=== PATIENT | female | born 1955 | race Caucasian/White ===

== ENCOUNTER 2022-12-16 11:11 | Outpatient (CLI) | payer OTHER, SELFPAY ==
--- NOTE | ~2022-12-16 | XR_ITS ---
Supine and upright views of the abdomen Clinical history: Diarrhea Findings: Bowel gas pattern is nonspecific. No evidence for obstruction or free air. No abnormal mass lesion or calcification is seen. Cholecystectomy clips are present. Degenerative spondylosis of the lumbar spine noted. Impression: Nonspecific bowel gas pattern. Reviewed, dictated and finalized at [facility]. Impression: Nonspecific bowel gas pattern.
== END 2022-12-16 11:12 | disposition home or self-care (01) ==
PROVIDERS: PCP Family Medicine; Visit Provider Nurse Practitioner Family
DX: R19.7 Diarrhea, unspecified (principal)
CPT/HCPCS: 74018

== ENCOUNTER 2023-01-20 08:45 | Outpatient (CLI) | payer OTHER, SELFPAY ==
--- NOTE | ~2023-01-20 | CT_ITS ---
. EXAMINATION: CT abdomen pelvis w con DATE: 01/20/2023 09:10 INDICATION: Unspecified abdominal pain TECHNIQUE: Computed tomography (CT) of the abdomen and pelvis was performed with 100 cc Omnipaque 350 intravenous contrast. The dose-length product was 485.36 mGy-cm. Automated exposure control and iter ative reconstruction technique were employed. COMPARISON: None. FINDINGS: Lung bases are unremarkable. Heart size is normal. No significant pleural or pericardial ef fusion. Status post cholecystectomy. There are liver cysts. Fatty infiltration of the liver. The sple en, pancreas, adrenal glands and left kidney are unremarkable. There is a 2 mm nonobstructing right r enal stone. Nonobstructive bowel pattern. Small fat containing umbilical hernia. Nonobstructive bowel pattern. No free air or free fluid. Mild lumbar spondylosis. IMPRESSION: 1. Nonobstructing right nephrolithiasis. Reviewed, dictated and finalized at [facility].
[2023-01-20 09:03] LABS: Estimated Glomerular Filt Rate 55
== END 2023-01-20 08:46 | disposition home or self-care (01) ==
PROVIDERS: PCP Family Medicine; Visit Provider Nurse Practitioner Family
DX: N20.0 Calculus of kidney (principal)
CPT/HCPCS: 74177; Q9967

== ENCOUNTER 2023-07-28 00:32 | Day surgery (SDC) | payer OTHER, SELFPAY ==
[2023-07-11 09:18] VITALS: BMI 28.3
--- NOTE | 2023-07-26 08:23 | SUR.PREOP ---
Patient called regarding upcoming procedure. Voicemail left regarding appointment times.
--- NOTE | 2023-07-27 14:30 | PM.HPGS ---
History of Present Illness History of Present Illness Consent: Risks, benefits, and alternatives have been discussed and questions answered. Patient agrees to proceed with procedure. Chief complaint: Change in bowel habit,IBS,Neoplasm screening, Narrative: Michelle Medina is a 68 year old female With a change in bowel habits. For the past year so she has had alternating constipation and diarrhea. She in fact had been using Linzess as well as at times using Imodium depending on her stool consistency. Fecal calprotectin level was normal. She also has a family history of colon cancer. Her father from colon cancer and her sister has had anal cancer. She also has been found have low-grade squamous intraepithelial lesions on her Pap smear. Review of Systems Review of Systems: All systems reviewed & are unremarkable except as noted in HPI and below PMFSH Past Medical History Medical History Adenomatous colon polyp BMI 29.0-29.9,adult Diabetes Family hx of colon cancer Hepatic steatosis HLD (hyperlipidemia) HTN (hypertension) Liver lesion Surgical History Surgical History History of appendectomy Hx laparoscopic cholecystectomy Hx of shoulder surgery Family History Family History Father Diabetes mellitus Lung cancer Carcinoma of colon Mother Diabetes mellitus Heart disease Sibling Diabetes mellitus Anal cancer Social History Social History Smoking status: Former smoker Tobacco type: cigarettes Second hand tobacco smoke exposure: Yes Alcohol intake: current Alcohol use details: socially 1 drink per month Substance use: never Substance use type: does not use Lack of Transportation: No Lack of Food: Never True Current Housing: I Have Housing Concerned About Future Housing: No Difficulty Paying Gas/Electric Bills: No Difficulty Paying for Meds: No Currently Unemployed: No Education: Master's Degree or Higher Difficulty w/ Childcare or Family Care: No Living arrangements: with family Occupation/Education: retired 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 Gender identity (if verbalized by the patient): Female Spiritual care concerns: No Meds Home Medications and Allergies Home Medications Medication Instructions Recorded Confirmed Type calcium carbonate 500 mg-vitamin 1 tablet PO DAILY 12/16/22 07/28/23 History D3 3.125 mcg (125 unit) tablet cyanocobalamin (vitamin B-12) 1,000 mcg PO DAILY 12/16/22 07/11/23 History 1,000 mcg capsule dulaglutide 1.5 mg/0.5 mL 1.5 mg subcut WEEKLY 12/16/22 07/11/23 History subcutaneous pen injector (Trulicity) estradiol 0.01% (0.1 mg/gram) 1 g vaginal WEEKLY 12/16/22 07/11/23 History vaginal cream lisinopril 5 mg tablet 5 mg PO DAILY 12/16/22 07/11/23 History metformin 500 mg tablet 1,000 mg PO DAILY 12/16/22 07/11/23 History rosuvastatin 5 mg tablet 5 mg PO DAILY 12/16/22 07/11/23 History tacrolimus 1 mg capsule, 1 mg PO Q12H PRN mouth sores 12/16/22 07/28/23 History immediate-release vitamin A-vitamin C-vit E-min 1 tablet PO DAILY 12/16/22 06/15/23 History tablet Bifidobacterium infantis 4 mg 4 mg PO DAILY 04/06/23 07/28/23 History capsule (Align) fluconazole 200 mg tablet 200 mg PO DAILY 07/11/23 07/11/23 History linaclotide 145 mcg capsule 145 mcg PO EVERY OTHER DAY 07/11/23 07/11/23 History (Linzess) Allergies Allergy/AdvReac Type Severity Reaction Status Date / Time metronidazole Allergy Severe HIVES Verified 07/28/23 10:11 Quinolones Allergy Severe NUMBNESS Verified 07/28/23 10:11 Sulfa (Sulfonamide Allergy Severe HIVES Verified 07/28/23 10:11 Antibiotics) ADHESIVE TAPE Allergy Mild RASH Uncoded 07/28/23 10:11 Exam
[2023-07-28 10:14] VITALS: BP 133/68; PULSE 87; RESP 16; TEMP 36.8; O2SAT 100
[2023-07-28] MEDS: LACTATED RINGERS 1,000 ML 150 ML IV CONT (10:22)
[2023-07-28 10:25] LABS: Glucose Point of Care 170 mg/dl (65-105)
--- NOTE | 2023-07-28 11:12 | WPDANESEPPF ---
Anes - Initial Pre Proc Eval Procedure: Operation Date: 07/28/23 11:00 Proposed Procedures p Colonoscopy - Cj Fonseca MD Date/Time: 07/28/23 11:12 Surgeon: Cj Fonseca MD Pre Op Diagnosis: Change in bowel habit,IBS,Neoplasm screening, Patient Data Age: 68 Gender: F Height: 1.63 m Weight: 75.8 kg Last Vital Signs Temp 36.8 C 07/28/23 10:14 Pulse 87 07/28/23 10:14 Resp 16 07/28/23 10:14 BP 133/68 07/28/23 10:14 Pulse Ox 100 07/28/23 10:14 O2 Del Method Room Air 07/28/23 10:14 Allergies Allergy/AdvReac Type Severity Reaction Status Date / Time metronidazole Allergy Severe HIVES Verified 07/28/23 10:11 Quinolones Allergy Severe NUMBNESS Verified 07/28/23 10:11 Sulfa (Sulfonamide Allergy Severe HIVES Verified 07/28/23 10:11 Antibiotics) ADHESIVE TAPE Allergy Mild RASH Uncoded 07/28/23 10:11 Home Medications Medication Instructions Recorded Confirmed Type calcium carbonate 500 mg-vitamin 1 tablet PO DAILY 12/16/22 07/28/23 History D3 3.125 mcg (125 unit) tablet cyanocobalamin (vitamin B-12) 1,000 mcg PO DAILY 12/16/22 07/11/23 History 1,000 mcg capsule dulaglutide 1.5 mg/0.5 mL 1.5 mg subcut WEEKLY 12/16/22 07/11/23 History subcutaneous pen injector (Trulicity) estradiol 0.01% (0.1 mg/gram) 1 g vaginal WEEKLY 12/16/22 07/11/23 History vaginal cream lisinopril 5 mg tablet 5 mg PO DAILY 12/16/22 07/11/23 History metformin 500 mg tablet 1,000 mg PO DAILY 12/16/22 07/11/23 History rosuvastatin 5 mg tablet 5 mg PO DAILY 12/16/22 07/11/23 History tacrolimus 1 mg capsule, 1 mg PO Q12H PRN mouth sores 12/16/22 07/28/23 History immediate-release vitamin A-vitamin C-vit E-min 1 tablet PO DAILY 12/16/22 06/15/23 History tablet Bifidobacterium infantis 4 mg 4 mg PO DAILY 04/06/23 07/28/23 History capsule (Align) fluconazole 200 mg tablet 200 mg PO DAILY 07/11/23 07/11/23 History linaclotide 145 mcg capsule 145 mcg PO EVERY OTHER DAY 07/11/23 07/11/23 History (Linzess) Laboratory Tests 07/28/23 10:09 POC Capillary Glucose 170 H mg/dl (65-105) Patient hx anesthesia problems: none Family hx anesthesia problems: none Results Review: All pre-operative results and documents have been reviewed as part of the pre-operative evaluation. [facility] Past Medical History Medical History Adenomatous colon polyp BMI 29.0-29.9,adult Diabetes Family hx of colon cancer Hepatic steatosis HLD (hyperlipidemia) HTN (hypertension) Liver lesion Surgical History Surgical History History of appendectomy Hx laparoscopic cholecystectomy Hx of shoulder surgery Family History Family History Father Diabetes mellitus Lung cancer Carcinoma of colon Mother Diabetes mellitus Heart disease Sibling Diabetes mellitus Anal cancer Social History Social History Smoking status: Former smoker Tobacco type: cigarettes Second hand tobacco smoke exposure: Yes Alcohol intake: current Alcohol use details: socially 1 drink per month Substance use: never Substance use type: does not use Lack of Transportation: No Lack of Food: Never True Current Housing: I Have Housing Concerned About Future Housing: No Difficulty Paying Gas/Electric Bills: No Difficulty Paying for Meds: No Currently Unemployed: No Education: Master's Degree or Higher Difficulty w/ Childcare or Family Care: No Living arrangements: with family Occupation/Education: retired 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
[2023-07-28 11:50] VITALS: BP 107/58; PULSE 85; RESP 19; O2SAT 100
[2023-07-28 12:00] VITALS: BP 98/62; PULSE 72; RESP 15; O2SAT 100
[2023-07-28 12:10] VITALS: BP 103/61; PULSE 72; RESP 17; O2SAT 100
== END 2023-07-28 12:15 | disposition home or self-care (01) ==
PROVIDERS: PCP Family Medicine; Visit Provider Internal Medicine Gastroenterology
PROC: 0DJD8ZZ Inspection of Lower Intestinal Tract, Via Natural or Artificial Opening Endoscopic (ICD-10-PCS; CPT 45378; principal; 2023-07-28 11:00)
DX: Z12.11 Encounter for screening for malignant neoplasm of colon (principal); D12.5 Benign neoplasm of sigmoid colon; D12.4 Benign neoplasm of descending colon; D12.0 Benign neoplasm of cecum; K64.8 Other hemorrhoids; Z80.0 Family history of malignant neoplasm of digestive organs; E11.9 Type 2 diabetes mellitus without complications; E78.5 Hyperlipidemia, unspecified; I10 Essential (primary) hypertension; Z87.891 Personal history of nicotine dependence
CPT/HCPCS: 45385; 45381; 82948; 88305; J2704; J7120